=== PATIENT | male | born 1955 | race Caucasian/White ===

== ENCOUNTER 2018-02-19 05:56 | Inpatient (IN) | payer BC ==
--- NOTE | 2018-02-17 03:51 | HP ---
HISTORY AND PHYSICAL: DATE OF SURGERY: 02/19/18 SURGEON: Jelena Blanchard MD * (DICTATED BY EMELY SIEGEL) PROCEDURE: Right total hip arthroplasty. CHIEF COMPLAINT: Right hip pain. HISTORY OF PRESENT ILLNESS: Mr. Lambert is a 62-year-old gentleman with continued complaints of right hip pain. He has failed conservative treatment and elected to proceed with a right total hip arthroplasty, which is scheduled for 02/19/[address] Blanchard. PAST MEDICAL HISTORY: Hypertension, history of a DVT, and sleep apnea. PAST SURGICAL HISTORY: Appendectomy, left total hip arthroplasty. CURRENT MEDICATIONS: 1. Furosemide 40 mg one and half tab daily. 2. Aleve. 3. Lipo-flavonoid. 4. Benicar 40/25 mg daily. 5. Centrum Silver. ALLERGIES: None. FAMILY HISTORY: Lung cancer, heart disease, and kidney disease. SOCIAL HISTORY: He is a 62-year-old gentleman. He lives with his . He does not smoke or use drugs. Uses occasional alcohol. REVIEW OF SYSTEMS: A complete 14-point review of systems was reviewed with the patient. It was positive for history of a DVT approximately 5 to 6 years ago. He denies a history of hepatitis, HIV, MRSA, or anesthesia problems. PHYSICAL EXAMINATION GENERAL: He is well developed, well nourished, in no acute distress. VITAL SIGNS: He stands 71 inches tall, weighs 318 pounds. His blood pressure is 130/80, his heart rate is 82. HEENT: Normocephalic, atraumatic. NECK: Supple. No palpable lymph nodes. PULMONARY: The lungs are clear to auscultation bilaterally. CARDIO: Regular rate and rhythm. Strong S1, S2. ABDOMEN: Soft, nontender, nondistended. MUSCULOSKELETAL: Right lower extremity, the skin is intact. There are no open wounds or abrasions. He walks with an antalgic type gait favoring his right hip. He has decreased internal and external rotation of the right hip. He has a 2+ dorsalis pedis pulse, 1+ pitting edema. The lower extremity muscle group strengths are intact at 5/5 and he has intact sensation. The calves are soft and nontender. NEUROLOGICAL: He is alert, oriented x3. Cranial nerves II through XII are intact. ASSESSMENT AND PLAN: Mr. Lambert is a 62-year-old gentleman with end-stage osteoarthritis of the right hip. He has failed conservative treatment and elected to proceed with a right total hip arthroplasty, which is scheduled for 02/19/[address] Blanchard discussed the risks and benefits of the surgery at today's visit and all of his questions were answered. He will follow up with Dr. Blanchard 2 weeks after the surgery. EMELY SIEGEL [id number]/[facility] #: [id number] MTDD
[~2018-02-19 05:56] MED LIST: Buffered Lidocaine 0.9% SYRIN* 5 ML/SYR SYRINGE INTRADERM ONE
[2018-02-19] MEDS ORDERED: Famotidine IV* 10 MG/ML 2 ML (20 mg) IV ONE (06:00)
[2018-02-19] MEDS ORDERED: Dexamethasone IV* 4 MG/ML 1 ML (4 MG) IV SLOW PU ONE (06:00)
--- OUTSIDE RECORDS SUMMARY | 2018-02-19 06:00 | XMS REPORT ---
:1955 External Reference #:[id number] Author Organization [employer] Address [address] [place] [address] [place] [address] Phone [phone] Care Team Providers Name Role Phone Roxanna Mccann DO Primary Care Physician Unavailable Payers Type Date Identification Numbers Payment Provider Subscriber Commercial Policy Number: [id number] [facility] Martinez Lambert PayID: [id number] [address] [place] [address] Problems Date Description Provider Status Onset: 01/21/2018 Localized, primary osteoarthritis of the Jelenapablo Blanchard M.D. 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 ETOH Use Occasionally consumes alcohol Smoking Patient has never smoked Recreational Drug Use Denies Drug Use Exercise Type/Frequency Exercises sporadically Allergies, Adverse Reactions, Alerts Date Description Reaction Status Severity Comments 01/14/2018 NKDA active Medications Medication Date Status Form Strength Qnty SIG Indications Ordering Provider Raised 02/16/ Active Misc 1units use after M16.11 Jelena Toilet Seat 2018 right total [place], hip M.DDanny arthroplasty Rolling 02/16/ Active 1units use for M16.11 Jelena Walker 2018 ambulation s/p cipriano BlanchardDDanny Lasix / Active Tablets 40mg 1.5 po qday Unknown 0000 Centrum / Active Tablets 1 by mouth Unknown Silver 0000 every day Olmesartan / Active Tablets 40-25mg 1 by mouth Unknown Medoxomil/Hy 0000 every day drochlorothi azide Equate Plus / Active Liquid as needed Unknown 0000 Tylenol / Active Unknown 0000 Aleve / Hx Capsules 220mg 1-2 by mouth Unknown 0000 - twice a day as 2017 Benicar HCT / Hx Tablets 40-25mg 1 by mouth Unknown 0000 - every day 2017 Lipo-Flavono / Hx Tablets 1 po tid Unknown id Plus - 2017 Ocuflox / Hx Solution 0.3% 2 drops each Unknown 0000 - eye every two 01/06/ hours while 2018 awake x5 days. Aleve / Hx Unknown 0000 - 2017 Vital Signs Date Vital Result Comment 02/16/2018 Height 71 inches 5'11" Weight 318.75 lb BP Systolic Sitting 130 mmHg BP Diastolic Sitting 86 mmHg Respiratory Rate 20 /min Body Temperature 98.1 F Pain Level 7 BMI (Body Mass Index) 44.5 kg/m2 01/21/2018 Height 69.5 inches 5'9.50" Weight 319.00 lb Heart Rate 80 /min BP Systolic 126 mmHg BP Diastolic 82 mmHg BMI (Body Mass Index) 46.4 kg/m2 01/16/2018 Height 73 inches 6'1" Heart Rate 83 /min BP Systolic Sitting 136 mmHg BP Diastolic Sitting 70 mmHg Respiratory Rate 17 /min Pain Level 5 can get very severe O2 % BldC Oximetry 96 % ra Results Test Date Test Result H/L Range Note Inr/Protime 02/16/2018 Inr 0.98 0.77-1.02 Laboratory test finding 02/16/2018 Partial Thrombo 30.1 seconds 26.0- 36.3 Time PTT Comp Metabolic Panel 02/16/2018 Sodium 139 mmol/L 135-145 Potassium 4.1 mmol/L 3.5-5.0 Chloride 100 mmol/L Low 101-111 Co2 Carbon Dioxide 31 mmol/L 22-32 Anion Gap 8 mmol/L 2-11 Glucose 96 mg/dL 70-100 Blood Urea Nitrogen 32 mg/dL High 6-24 Creatinine 1.36 mg/dL High 0.67-1.17 BUN/Creatinine Ratio 23.5 High 8-20 Calcium 10.1 mg/dL 8.6-10.3 Total Protein 7.3 g/dL 6.4-8.9 Albumin 4.4 g/dL 3.2-5.2 Globulin 2.9 g/dL 2-4 Albumin/Globulin Ratio 1.5 1-3 Total Bilirubin 0.40 mg/dL 0.2-1.0 Alkaline Phosphatase 57 U/L 34-104 Alt 27 U/L 7-52 Ast 26 U/L 13-39 Egfr Non- 52.8 >60 Egfr 63.8 >60 1 CBC Auto Diff 02/16/2018 White Blood Count 7.7 10^3/uL 3.5-10.8 Red Blood Count 4.21 10^6/uL 4.00-5.40 Hemoglobin 13.8 g/dL Low 14.0-18.0 Hematocrit 39 % Low 42-52 Mean Corpuscular Volume 93 fL 80-94 Mean Corpuscular Hemoglobin 33 pg High 27-31 Mean Corpuscular HGB Conc 35 g/dL 31-36 Red Cell Distribution Width 14 % 10.5-15 Platelet Count 231 10^3/uL 150-450 Mean Platelet Volume 7.9 um3 7.4-10.4 Abs Neutrophils 5.2 10^3/uL 1.5-7.7 Abs Lymphocytes 1.5 10^3/uL 1.0-4.8 Abs Monocytes 0.8 10^3/uL 0-0.8 Abs Eosinophils 0.2 10^3/uL 0-0.6 Abs Basophils 0.1 10^3/uL 0-0.2 Abs Nucleated RBC 0 10^3/uL Granulocyte % 67.0 % 38-83 Lymphocyte % 19.2 % Low 25-47 Monocyte % 9.9 % High 0-7 Eosinophil % 2.9 % 0-6 Basophil % 1.0 % 0-2 Nucleated Red Blood Cells % 0.1 Urinalysis Profile 02/16/2018 Urine Color Straw Urine Appearance Clear Urine Specific [place] 1.009 Low 1.010-1.030 Urine pH 6.0 5-9 Urine Urobilinogen Negative Negative Urine Ketones Negative Negative Urine Protein Negative Negative Urine Leukocytes Negative Negative Urine Blood Negative Negative Urine Nitrite Negative Negative Urine Bilirubin Negative Negative Urine Glucose Negative Negative Type & Screen 02/16/2018 Patient Blood Type O Positive Antibody Screen NEGATIVE 1 Because ethnic data is not always readily available, this report includes an eGFR for both -Americans and non- Americans. The National Kidney Disease Education Program (NKDEP) does not endorse the use of the MDRD equation for patients that are not between the ages of 18 and 70, are , have extremes of body size, muscle mass, or nutritional status, or are non- or non-. According to the National Kidney Foundation, irrespective of diagnosis, the stage of the disease is based on the level of kidney function: Stage Description GFR(mL/min/1.73 m(2)) 1 Kidney damage with normal or decreased GFR 90 2 Kidney damage with mild decrease in GFR 60-89 3 Moderate decrease in GFR 30-59 4 Severe decrease in GFR 15-29 5 Kidney failure <15 (or dialysis) Procedures Date CPT Code Description Status 01/16/2018 22148 Radiologic Exam Hips Bilateral With Pelvis Minimum 5 Completed Views Encounters Type Date Location Provider CPT E/M Dx Office Visit 01/21/2018 [facility] M.D. 31792 M16.11 10:45a C.M.ADanny M25.551 Office Visit 01/16/2018 11:00a [facility] [place] [address] M16.11 [facility] [place] Z96.642 Plan of Care Future Appointment(s):03/04/2018 9:30 am - Jelena Blanchard M.D. at [facility]02/19/2018 9:30 am - Marco Oneill PA-C at [facility]02/19/2018 9:30 am - EMELY Pennington at [facility]02/19/2018 9:30 am - Jelena Blanchard M.D. at [facility]02/16/2018 - Jelena Blanchard M.D.M16.11 Unilateral primary osteoarthritis, right hipNew Medication:Raised Toilet SeatRolling WalkerFollow up:Follow up: 2 weeks after jgamproP72.551 Pain in right hip
--- OUTSIDE RECORDS SUMMARY | 2018-02-19 06:00 | XMS REPORT ---
:1955 External Reference #:[id number] Author Organization [employer] Address [address] [place] [address] [place] [address] Phone [phone] Care Team Providers Name Role Phone Roxanna Mccann DO Primary Care Physician Unavailable Payers Type Date Identification Numbers Payment Provider Subscriber Commercial Policy Number: [id number] [facility] Martinez Lambert PayID: [id number] [address] [place] [address] Problems Date Description Provider Status Onset: 01/21/2018 Localized, primary osteoarthritis of the Jelenapablo Blanchard M.D. 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 ETOH Use Occasionally consumes alcohol Smoking Patient [...] 40mg 1.5 po qday Unknown 0000 Centrum 00/00/ Active Tablets 1 by mouth Unknown Silver 0000 every day Olmesartan / Active Tablets 40-25mg 1 by mouth Unknown Medoxomil/Hy 0000 every day drochlorothi azide Equate Plus / Active Liquid as needed Unknown 0000 Tylenol 00/ Active Unknown 0000 Aleve / Hx Capsules 220mg 1-2 by mouth Unknown 0000 - twice a day as 2017 Benicar HCT / Hx Tablets 40-25mg 1 by mouth Unknown 0000 - every day 2017 Lipo-Flavono / Hx Tablets 1 po tid Unknown id Plus 0000 - 2017 Ocuflox / Hx Solution 0.3% 2 drops each Unknown 0000 - eye every two 07/ hours while 2018 awake x5 days. Aleve [...] % BldC Oximetry 96 % ra Results Description No Information Procedures Date CPT Code Description Status 01/16/2018 02385 Radiologic Exam Hips Bilateral With Pelvis Minimum 5 Completed Views Encounters Type Date Location Provider CPT E/M Dx Office Visit 01/21/2018 [facility] M.D. 11120 M16.11 10:45a [place] M25.551 Office Visit 01/16/2018 11:00a [facility] [place] [address] [facility] [place] Z96.642 Plan of Care Future Appointment(s):03/04/2018 9:30 am - Jelena Blanchard M.D. at [facility] [place]/19/2018 9:30 am - Marco Oneill PA-C at [facility]02/19/2018 9:30 am - EMELY Pennington at [facility]02/19/2018 9:30 am - Jelena Blanchard M.D. at [facility]02/16/2018 - Jelena Blanchard M.D.M16.11 Unilateral primary osteoarthritis, right hipNew Medication:Raised Toilet SeatRolling WalkerFollow up:Follow up: 2 weeks after iluqabgC80.551 Pain in right hip
[2018-02-19] MEDS ORDERED: Dexamethasone IV* 4 MG/ML 1 ML (4 MG) ONE (06:23)
[2018-02-19] MEDS ORDERED: ceFAZolin 2 GM PREMIX (*) 2 GM/50 ML BAG IVPB ONE (06:24)
[2018-02-19] MEDS ORDERED: Famotidine IV* 10 MG/ML 2 ML (20 mg) ONE (06:24)
[2018-02-19] MEDS ORDERED: Gabapentin CAP(*) 300 MG PO ONE (06:59)
[2018-02-19] MEDS ORDERED: celeCOXIB CAP* 200 MG PO ONE (06:59)
[2018-02-19] MEDS ORDERED: ceFAZolin 1 GM ADVAN(*) 1 GM in NS 0.9% 50 ML* 50 ML IVPB ONE (07:00)
[2018-02-19] MEDS ORDERED: ROPIVACAINE 5 MG/ML 30 ML BTL (0.5%) ONE ×2 (07:10→07:11)
[2018-02-19] MEDS ORDERED: Ropivacaine (OR use only) 2 MG/ML 10 ML ONE ×2 (07:10→07:11)
[2018-02-19] MEDS ORDERED: Atracurium* 10 MG/ML 10 ML VIAL ONE (07:13)
[2018-02-19] MEDS ORDERED: fentaNYL* 50 MCG/ML 5 ML VIAL (250 MCG VIAL) ONE ×2 (07:13→08:03)
[2018-02-19] MEDS ORDERED: Propofol* 10 MG/ML 20 ML BTL IV PUSH ONE (07:13)
[2018-02-19] MEDS ORDERED: Ondansetron INJ* 2 MG/ML VIAL ONE ×3 (07:13→13:54)
[2018-02-19] MEDS ORDERED: Lidocaine 2% PF * 5 ML VIAL ONE (07:13)
[2018-02-19] MEDS ORDERED: Midazolam* 1 MG/ML 5 ML VIAL (5 MG) ONE ×3 (07:13→11:37)
[2018-02-19] MEDS ORDERED: Gabapentin CAP(*) 300 MG ONE (07:18)
[2018-02-19] MEDS ORDERED: celeCOXIB CAP* 100 MG ONE (07:18)
[2018-02-19] MEDS ORDERED: Phenylephrine INJ* 10 MG/ML 1 ML VIAL (10 MG) ONE (08:48)
[2018-02-19] MEDS ORDERED: EPHEDrine (Pressors)* 50 MG/ML VIAL ONE (08:56)
[2018-02-19] MEDS ORDERED: HYDROmorphone INJ* 0.5 MG/0.5 ML SYRINGE IV PRN (09:04)
[2018-02-19] MEDS ORDERED: Ondansetron INJ* 2 MG/ML VIAL IV PRN ×2 (09:04→11:01)
[2018-02-19] MEDS ORDERED: Naloxone* 0.4 MG/ML 1 ML VIAL IV PRN (09:04)
[2018-02-19] MEDS ORDERED: DiMENhydriNATE IV* 50 MG/ML VIAL IV PUSH PRN (09:04)
--- NOTE | 2018-02-19 09:52 | RAD ---
HISTORY: RIGHT TOTAL HIP REPLACEMENT COMPARISONS: None VIEWS: 1 , single frontal portable intraoperative view of the right hip arthroplasty FINDINGS: Single portable intraoperative view of the right hip during arthroplasty demonstrates a right hip arthroplasty with a temporary femoral sizing component IMPRESSION: LIMITED PORTABLE INTRAOPERATIVE VIEW OF THE RIGHT HIP DURING ARTHROPLASTY
[2018-02-19] MEDS ORDERED: Ropivacaine* 2 MG/ML 20 ML VIAL (0.2%) ONE (10:10)
[2018-02-19] MEDS ORDERED: Magnesium Hydroxide LIQ* 30 ML UDC PO PRN (11:01)
[2018-02-19] MEDS ORDERED: oxyCODONE/Acetamin 5/325 MG* TAB PO PRN (11:01)
[2018-02-19] MEDS ORDERED: Bisacodyl SUPP* 10 MG SUPP PR PRN (11:01)
[2018-02-19] MEDS ORDERED: diPHENhydraMINE IV* 50 MG/ML 1 ml VIAL (BENADRYL) IV PRN (11:01)
[2018-02-19] MEDS ORDERED: Morphine INJ* 2 MG/ML 1 ML SYRINGE (TWO MG - NEW SYRINGE VERSION) IV PRN (11:01)
[2018-02-19] MEDS ORDERED: fentaNYL* 50 MCG/ML 2 ML VIAL (100 MCG VIAL) ONE ×2 (11:02→11:09)
[2018-02-19] MEDS ORDERED: HYDROmorphone INJ* 0.5 MG/0.5 ML SYRINGE ONE (11:02)
[2018-02-19] MEDS: fentaNYL* 50 MCG/ML 2 ML VIAL (100 MCG VIAL) IV PRN ×2 (11:04→11:42)
[2018-02-19] MEDS ORDERED: oxyCODONE/Acetamin 5/325 MG* TAB ONE (11:07)
[2018-02-19] MEDS: oxyCODONE/Acetamin 5/325 MG* TAB PO PRN ×3 (11:40→16:34)
[2018-02-19] MEDS ORDERED: Acetaminophen TAB* 325 MG PO SCH (12:00)
--- NOTE | 2018-02-19 12:13 | RAD ---
INDICATION: Right hip arthroplasty COMPARISON: February 19, 2018 TECHNIQUE: An AP view of the pelvis and AP views of the hip in neutral and abducted position were obtained FINDINGS: Bones: There are no acute focal bony findings. Joint spaces: There is right hip arthroplasty. The prosthesis appears normally seated. SI joints/symphysis: The SI joints and symphysis are intact. Other: None IMPRESSION: RIGHT HIP ARTHROPLASTY.
[2018-02-19] MEDS ORDERED: oxyCODONE TAB* 5 MG TAB ONE (13:57)
[2018-02-19] MEDS: oxyCODONE TAB* 5 MG TAB PO PRN (14:00)
[2018-02-19] MEDS ORDERED: celeCOXIB CAP* 100 MG PO ONE (15:00)
[2018-02-19] MEDS: Cyclobenzaprine TAB* 10 MG PO PRN (15:29)
[2018-02-19] MEDS: Acetaminophen TAB* 325 MG PO SCH ×2 (15:30→22:57)
--- NOTE | 2018-02-19 16:29 | PN ---
Progress Note - Progress Note Date of Service: 02/19/18 Note: resting comfortably, pain well controlled; 2+ DP pulse, intact sensation, able to dorsi flex/plantar flex; dressing c/d/i
[2018-02-19] MEDS: ceFAZolin 1 GM ADVAN(*) 1 GM in NS 0.9% 50 ML* 50 ML IVPB SCH (16:34)
[2018-02-19] MEDS ORDERED: Warfarin TAB(*) 6 MG PO ONE (17:00)
--- NOTE | 2018-02-19 19:07 | CONS ---
CC: Dr. Blanchard; Roxanna Rosado DO * CONSULTATION REPORT: DATE OF CONSULT: 02/19/18 PATIENT OF: Dr. Jelena Blanchard. REFERRED TO: Marli Yen DO PRIMARY CARE PHYSICIAN: Roxanna Rosado DO REASON FOR CONSULT: Medical co-management. HISTORY OF PRESENT ILLNESS: Mr. Lambert is a 62-year-old gentleman with past medical history significant for hypertension, osteoarthritis, obstructive sleep apnea and morbid obesity who has been suffering from consistent right hip pain for the past few years. The patient had prior left hip replacement done back in 2011 and for the past few months, he had noticed increasing pain to his right hip. He was evaluated by the [facility] and found to be a good candidate for right hip replacement to be performed on an elective basis. The patient had history of hypertension that has been well controlled using his medications at home. He has a significant family history of coronary artery disease; however, he denies any history of hyperlipidemia or history of IA himself. He also has history of obstructive sleep apnea, which he has not been using any CPAP at home. According to his , she wakes him up numerous times during the night when she notices that he stopped breathing and has been snoring loudly. He was taken to the operating room earlier today and had a successful right total hip replacement and he was lying comfortably in recovery room. We were asked to see the patient in consultation regarding his medical comorbidities and to provide medical co-management while his stay in the hospital. PAST MEDICAL HISTORY: As mentioned above significant for: 1. Hypertension. 2. Osteoarthritis. 3. Obstructive sleep apnea. 4. Morbid obesity. PAST SURGICAL HISTORY: 1. Significant for appendectomy. 2. Prior total hip replacement on the left side back in 2011. 3. Postop day #0, status post right total hip replacement. CURRENT MEDICATIONS: His medications at home include: 1. Acetaminophen 650 mg p.o. q.4 hours as needed for pain or fever. 2. Lasix 40 mg p.o. daily. 3. Benicar 40/25 mg 1 tablet p.o. q.a.m. 4. Multiple vitamins 1 tablet daily. 5. Aleve 220 mg 2 tablets by mouth q.6 hours as needed for arthritic aches and pains. ALLERGIES: He has no known drug allergies. FAMILY HISTORY: Reviewed and significant for coronary artery disease and his mother, who in her 70s as well as history of lung cancer in his father in his early 40s. SOCIAL HISTORY: The patient is retired. He is nonsmoker who drinks alcohol rarely. His , Adelaida, is the healthcare proxy carrier and he wishes to be a full code. REVIEW OF SYSTEMS: See HPI, otherwise 14 points review of systems were examined and they were essentially negative. PHYSICAL EXAM: General: He is a pleasant, obese, upper middle age gentleman, lying comfortably on his bed and in no acute distress or discomfort at the time of consultation. Vitals revealed a blood pressure of 159/83, pulse of 87, temperature of 96.8, respirations of 14 with O2 sat of 98% on 5 L oxygen via mask. HEENT: Head is normocephalic, atraumatic. Sclerae anicteric. PERRLA. EOMs intact. Oropharynx is pink and moist. Neck: Supple. Trachea midline. No cervical adenopathy, thyromegaly, or JVD. Lungs: Clear to auscultation bilaterally. Heart: Regular rate and rhythm. Normal S1 and S2 without rubs, murmurs, or gallops. Back with normal curvature. No CVA tenderness. Abdomen: Soft, obese, and round. There is no distention or tenderness noted. No guarding, rigidity, or rebound tenderness. No hernias, masses, or hepatosplenomegaly. Extremities: Without cyanosis, clubbing, or edema. Neurologic: He is awake, alert, and oriented x4. Tongue is midline. Muscle dry room operator is equal bilaterally and sensation is intact throughout. Rectal exam deferred at this time. IMPRESSION: A 62-year-old gentleman with past medical history of hypertension, morbid obesity, osteoarthritis, and obstructive sleep apnea, who is postop day # 0 status post right total hip replacement. ASSESSMENT AND PLAN: 1. Hypertension. The patient appears to be slightly hypertensive in the immediate postoperative period, likely due to added stress from surgery and occasional pain and discomfort. I will maintain him on his Benicar to be taken once daily in the morning; however, we will hold his Lasix for the time being since he has been getting IV fluid in a postoperative period. We will keep close monitoring of his blood pressure and potentially may add other agents to keep it within normal limits. 2. Status post right total hip replacement, management per orthopedic team. I anticipate he is going to start his physical therapy in the morning. He is currently having a Hernandez catheter that will be likely discontinued in the morning as well. Pain control appears to be adequate at this time and management will be per ortho team. Anticoagulation protocol will be also managed by Orthopedics. 3. Obstructive sleep apnea. The patient had an episode of desaturation of his oxygen level at PACU. He refuses to use CPAP at home. I had long conversation with him regarding the necessity to keep monitor his oxygen saturation in the next 24 hours and he will use his CPAP while in the hospital and hopefully to continue using at home. 4. Osteoarthritis. We will continue his pain medication per orthopedic team. 5. Morbid obesity. Supportive care and physical therapy. 6. DVT prophylaxis. The patient is being covered with Lovenox to be bridge to Coumadin and management is done by orthopedic team. 7. Code status. He is a full code. TIME SPENT: I spent approximately 50 minutes consult into this patient, for which greater than 50% of the time spent on taking history and performing physical exam. I went on and discussed the case with my attending, Dr. Marli Yen, who agreed to plan of care. Thank you for this consultation. EMELY ROQUE [id number]/[facility] #: [id number] MTDD
[2018-02-19] MEDS: Docusate CAP* 100 MG PO SCH (22:57)
[2018-02-19] MEDS: Magnesium Hydroxide LIQ* 30 ML UDC PO SCH (22:58)
[2018-02-20] MEDS: ceFAZolin 1 GM ADVAN(*) 1 GM in NS 0.9% 50 ML* 50 ML IVPB SCH ×2 (00:12→07:38)
[2018-02-20] MEDS: Cyclobenzaprine TAB* 10 MG PO PRN (01:40)
[2018-02-20] MEDS: oxyCODONE TAB* 5 MG TAB PO PRN ×4 (01:41→22:07)
--- NOTE | 2018-02-20 03:56 | OP ---
DATE OF OPERATION: 02/19/18 - ROOM #341 DATE OF : 51 SURGEON: Jelena Blanchard MD CAR CUSTOMIZER: EMELY Feldman. Mr. Oneill did help throughout the procedure with preparation of the leg, wound retraction, manipulation of the hip and wound closure. ANESTHESIOLOGIST: Dr. Ch. ANESTHESIA: General. PRE-OP DIAGNOSES: 1. Severe end-stage degenerative osteoarthritis of the right hip joint. 2. Morbid obesity. POST-OP DIAGNOSES: 1. Severe end-stage degenerative osteoarthritis of the right hip joint. 2. Morbid obesity. OPERATIVE PROCEDURE: Right total hip arthroplasty plus modifier for increased complexity of case secondary to morbid obesity add in at least 1 hour to the operative time. BRIEF HISTORY/INDICATIONS: Mr. Lambert is a 62-year-old gentleman with years of increasingly severe right hip pain. He failed conservative treatment with anti- inflammatories, pain medication, intraarticular injections, and physical therapy. Due to continued pain and decreased quality of life, the patient elected to undergo a right total hip arthroplasty. Radiograph showed bone-on- bone arthritis. Informed consent was obtained from the patient. He understood the risks of surgery included, but were not limited to bleeding, infection, damage to nearby structures, continued pain, need for further surgery, intraoperative fracture, nerve palsy, hardware failure or loosening, dislocation , leg length discrepancy, stroke, heart attack, blood clot, and . He wished to proceed. INTRAOPERATIVE FINDINGS: Intraoperatively, the patient was noted to have morbid obesity, which made each step of the case more difficult. His morbid obesity added at least 1 hour to the operative case. He had at least 8 cm of subcutaneous fat. He was noted to have extensive osteoarthritis with full thickness loss of cartilage along the acetabulum more than femoral head and neck. COMPLICATIONS: None. SPECIMEN: Femoral head and acetabular reaming sent to Pathology. ESTIMATED BLOOD LOSS: 400 cc. HARDWARE USED: This is uncemented [place] total hip arthroplasty hardware. For the cup, a Tritanium cluster hole shell 56D single 20 mm screw. For the liner, a Trident X3 10-degree polyethylene insert, 36 E. For the stem, an Accolade TMZF size 3.5 with a 127-degree neck and for the head, a Biolox delta ceramic V40 femoral head 36 -2.5. DESCRIPTION OF PROCEDURE: Mr. [place] was identified in the preanesthesia unit. His right lower extremity was marked as the correct operative side. Informed consent was signed and placed in the chart. The patient was taken to the operating room and placed under general anesthesia. A Hernandez catheter was placed. The patient was placed in the left lateral decubitus position on the pegboard. All bony prominences were well padded. Right lower extremity was prepped and draped in the usual sterile fashion. Preop time-out was made to correctly identify the patient's side and site. Appropriate perioperative antibiotics were given within 1 hour of incision. A standard posterior hip incision was made with the 10 blade and carried down to the lateral fascial layer. New 10 blade was used to make a lateral fascial layer incision in line with the skin incision. A [place] retractor was placed. The posterior hip joint was visualized. The piriformis and conjoint tendons were elevated off the posterolateral femur using electrocautery and tagged with #5 Ethibond. Electrocautery was then used to make a standard posterolateral capsular flap and tagged with #5 Ethibond. The hip was carefully dislocated. Lesser troch to center of the femoral head measured 62 mm. The oscillating saw was used to make the appropriate femoral neck cut. The femoral head was removed. The femur was retracted anteriorly. After appropriate placement of retractors, the acetabulum was visualized. A long-handled knife was used to sharply remove any remaining labrum from the acetabular rim. The acetabulum was sequentially reamed up to a size 55. A 55 reamer obtained bleeding subchondral bone bed. A 55 trial had good fit. Final implant chosen was a Tritanium cluster hole shell 56 D. This was impacted into the acetabulum without difficulty. The cup was stable with appropriate anteversion and abduction angle. A 20 mm screw was placed in the supero- posterior quadrant for added stability. A Trident X3 10 degree polyethylene insert 36 E was chosen. This was impacted into the acetabulum. Stability of the liner was checked and rechecked and noted to be stable. Next, attention was turned to preparation of the proximal femur. The patient's body habitus made retraction quite difficult. A canal finder was used to enter the proximal femur. The proximal femur was sequentially broached up to a size 3.5. A 3.5 broach had excellent fit and appropriate anteversion. A 127 neck trial was chosen as well as a 36+0 head trial. Lesser troch to center of the femoral head measured 66 mm; therefore, a -3.5 head was chosen. This measured 63 mm. The hip was reduced and taken through a range of motion. The hip was stable in all positions. There was good soft tissue tension and appropriate leg length. The hip was carefully dislocated. All trials were removed. Final implant chosen was an Accolade TMZF size 3.5 with a 127-degree neck. Head chosen was a 36 -2.5 Biolox delta ceramic V40 femoral head. This was impacted onto the femoral neck. The hip was reduced and taken through a range of motion. The hip was stable in all positions. The incision was copiously irrigated with sterile saline. Previously tagged capsule and tendons were reapproximated to the posterolateral femur through 2 trochanteric drill holes. The lateral fascial layer was closed using interrupted #1 Vicryls. The rest of the incision was closed in a layered fashion using 0 and 2- 0 Vicryls. Skin was closed using running 3-0 Monocryl with Dermabond. Sterile Adaptic, 4x4s, and paper tape were used to cover the incision. The patient's anesthesia was reversed without difficulty. He was taken to the PACU in stable condition. Intended weightbearing will be weightbearing as tolerated. Intended DVT prophylaxis will be Coumadin with a Lovenox bridge. [id number] #: [id number] CHARLIE
[2018-02-20] MEDS: Acetaminophen TAB* 325 MG PO SCH ×3 (05:49→22:07)
[2018-02-20 07:06] LABS: INR 1.12 (0.77-1.02)
[2018-02-20 07:22] LABS: EGFR Non-African American 50.2 (>60)
[2018-02-20 07:27] LABS: Hematocrit 33 % (42-52); Hemoglobin 11.5 g/dl (14.0-18.0)
[2018-02-20] MEDS: Vitamin THERAPEUTIC TAB PO SCH (07:38)
[2018-02-20] MEDS: Docusate CAP* 100 MG PO SCH ×2 (07:38→20:58)
[2018-02-20] MEDS: Magnesium Hydroxide LIQ* 30 ML UDC PO SCH ×2 (07:39→20:58)
[2018-02-20] MEDS: Valsartan TAB* 160 MG PO SCH (07:55)
[2018-02-20] MEDS: Hydrochlorothiazide TAB* 25 MG PO SCH (07:55)
[2018-02-20] MEDS: oxyCODONE/Acetamin 5/325 MG* TAB PO PRN ×2 (07:58→11:51)
[2018-02-20 08:17] LABS: Mean Platelet Volume 8.9 um3 (7.4-10.4); Platelet Count 155 10^3/ul (150-450)
[2018-02-20] MEDS ORDERED: Furosemide TAB* 40 MG PO SCH (09:00)
[2018-02-20] MEDS ORDERED: OLMESARTAN HCTZ PO SCH (09:00)
--- NOTE | 2018-02-20 09:09 | PN ---
Subjective Date of Service: 02/20/18 Interval History: Mr. Lambert reports feeling well this afternoon and denies chest pain, SOB, nausea, or abdominal pain. He reports that his knee pain is well controlled on the current pain medication regimen. Objective Active Medications: Acetaminophen (Tylenol Tab*) 650 mg PO Q8HR GELACIO Bisacodyl (Dulcolax Supp*) 10 mg [place] DAILY PRN Cyclobenzaprine HCl (Flexeril Tab*) 10 mg PO TID PRN Diphenhydramine HCl (Benadryl Iv*) 25 mg IV Q6H PRN Docusate Sodium (Colace Cap*) 100 mg PO BID GELACIO Enoxaparin Sodium (Lovenox(*)) 40 mg SUBCUT Q24H [place]AC[facility] Hydrochlorothiazide (Hydrodiuril Tab*) 25 mg PO DAILY [facility]AC[facility] Lactated Ringer's (Lactated Ringers 1000 Ml Bag*) 1,000 mls @ 125 mls/hr IV PER RATE GELACIO Lactated Ringer's (Lactated Ringers 1000 Ml Bag*) 1,000 mls @ 100 mls/hr IV PER RATE GELACIO Magnesium Hydroxide (Milk Of Magnesia Liq*) 30 ml PO BID GELACIO Magnesium Hydroxide (Milk Of Magnesia Liq*) 30 ml PO Q6H PRN Morphine Sulfate (Morphine Inj ((Syringe))*) 4 mg IV Q2H PRN Multivitamins (Theragran Tab*) 1 tab PO DAILY [facility] Ondansetron HCl (Zofran Inj*) 4 mg IV Q6H PRN Oxycodone HCl (Roxycodone Tab*) 10 mg PO Q4H PRN Oxycodone/Acetaminophen (Percocet 5/325 Tab*) 1 tab PO Q4H PRN Oxycodone/Acetaminophen (Percocet 5/325 Tab*) 2 tab PO Q4H PRN Pharmacy Profile Note (Coumadin Daily Reminder*) 0 note FOLLOW UP 1700 [facility]IO Valsartan (Diovan Tab*) 320 mg PO DAILY [facility] Vital Signs: Temp Pulse Resp BP Pulse Ox 99.4 F 93 16 130/68 95 02/20/18 03:55 02/20/18 03:55 02/20/18 07:58 02/20/18 03:55 02/20/18 03:55 Oxygen Devices in Use Now: None Appearance: Male sitting up in chair in NAD Eyes: No Scleral Icterus Ears/Nose/Mouth/Throat: Mucous Membranes Moist Neck: Trachea Midline Respiratory: Symmetrical Chest Expansion and Respiratory Effort, Clear to Auscultation Cardiovascular: NL Sounds; No Murmurs; No JVD, No Edema Abdominal: NL Sounds; No Tenderness; No Distention Extremities: No Edema Skin: No Rash or Ulcers Neurological: Alert and Oriented x 3, NL Muscle Strength and Tone Nutrition: Taking PO's Result Diagrams: 02/20/18 06:13 02/20/18 08:05 Assess/Plan/Problems-Billing Assessment: Mr. Lambert is a 62 yo M with a PMH of HTN and CYNTHIA who cannot tolerate home CPAP who was admitted on 02/19/18 for an elective right hip total arthroplasty. - Patient Problems (1) S/P total hip arthroplasty Comment: - POD # 1, management per ortho. - Pain meds prn with bowel regimen. - PT/OT. - Hgb 11.5. (2) Hypertension Comment: - SBP 150s. - Continue lasix, ARB and htcz. (3) CYNTHIA (obstructive sleep apnea) Comment: - Not on home cpap. (4) DVT prophylaxis Comment: - Lovenox with warfarin. (5) Full code status Comment:
--- NOTE | 2018-02-20 11:21 | PN ---
Progress Note - Progress Note Date of Service: 02/20/18 SOAP: Subjective: [Pt was seen today sitting up in chair. He states that he has mild pain and that it is manageable. He states he feels as he may be ready to go home today but is leaning more towards going home tomorrow morning as he would like his to not drive in the evening. He denies any SOB, Chest pain, nausea or vomiting. ] Objective: [General: A&Ox3, NAD. MSK, RLE: Dressing is c/d/i. +df/pf. Calves are soft and non tender to palpation. Sensation is intact to light touch and the pt has a 2+ DP and PT pulse.] Vital Signs Temp 97.2 F 02/20/18 09:23 Pulse 98 02/20/18 09:23 Resp 15 02/20/18 09:53 BP 150/65 02/20/18 09:23 Pulse Ox 97 02/20/18 09:23 Intake & Output 02/19/18 02/20/18 02/20/18 18:59 06:59 18:59 Intake Total 2750 360 650 Output Total 1200 720 0 Balance 1550 -360 650 Intake: IV Fluids 2600 CEFAZOLIN 3G 100 lr 2500 Oral 150 360 650 Output: Urine 0 Hernandez 600 720 Emesis 300 Estimated Blood Loss 300 Other: # Bowel Movements 0 Assessment: [POD 1: RTHA] Plan: [PT/OT continue current pain medication 8mg of Coumadin tonight Possible DC tonight, more likely tomorrow morning.]
[2018-02-20] MEDS ORDERED: Furosemide TAB* 40 MG ONE (11:47)
[2018-02-20] MEDS: Furosemide TAB* 20 MG PO SCH (11:48)
[2018-02-20] MEDS ORDERED: Enoxaparin(*) 40 MG/0.4 ML SYR SUBCUT SCH (12:00)
[2018-02-20] MEDS ORDERED: Warfarin TAB(*) 4 MG PO SCH (17:00)
[2018-02-21] MEDS: oxyCODONE/Acetamin 5/325 MG* TAB PO PRN ×2 (03:41→09:50)
[2018-02-21 06:01] LABS: Hematocrit 28 % (42-52); Hemoglobin 9.7 g/dl (14.0-18.0); Mean Platelet Volume 7.6 um3 (7.4-10.4); Platelet Count 153 10^3/ul (150-450)
[2018-02-21] MEDS: Acetaminophen TAB* 325 MG PO SCH (06:02)
[2018-02-21 06:08] LABS: INR 1.37 (0.77-1.02)
--- NOTE | 2018-02-21 09:07 | PN ---
Progress Note - Progress Note Date of Service: 02/21/18 SOAP: Subjective: [Pt doing well. R hip pain controlled with po meds. Feels ready to go home.] Objective: [A and O x 3, NAD. At PT upon my visit. R hip dressing C/D/I Calves soft, NT. Pt ambulating with walker Vital Signs: Temp Pulse Resp BP Pulse Ox 97.4 F 85 18 123/55 99 02/21/18 07:16 02/21/18 07:16 02/21/18 08:00 02/21/18 07:16 02/21/18 08:00 Laboratory Results - last 24 hr 02/21/18 02/21/18 05:50 05:50 Hgb 9.7 L Hct 28 L Plt Count 153 MPV 7.6 INR (Anticoag Therapy) 1.37 H ] Assessment: [s/p R RAYO POD #2] Plan: [Percocet for pain Coumadin for DVT prophylaxis - 8 mg , 8 mg Friday D/C patient home with services F/U with Dr. Blanchard in 2 weeks]
[2018-02-21] MEDS: Hydrochlorothiazide TAB* 25 MG PO SCH (09:17)
[2018-02-21] MEDS: Magnesium Hydroxide LIQ* 30 ML UDC PO SCH (09:17)
[2018-02-21] MEDS: Furosemide TAB* 20 MG PO SCH (09:17)
[2018-02-21] MEDS: Docusate CAP* 100 MG PO SCH (09:17)
[2018-02-21] MEDS: Valsartan TAB* 160 MG PO SCH (09:17)
[2018-02-21] MEDS: Vitamin THERAPEUTIC TAB PO SCH (09:18)
--- NOTE | 2018-02-21 11:14 | PN ---
Subjective Date of Service: 02/21/18 Interval History: Mr. Lambert denies complaint today. He has been up working with PT already and is hopeful to go home later this afternoon. Objective Active Medications: Acetaminophen (Tylenol Tab*) 650 mg PO Q8HR GELACIO Bisacodyl (Dulcolax Supp*) 10 mg [place] DAILY PRN Cyclobenzaprine HCl (Flexeril Tab*) 10 mg PO TID PRN Diphenhydramine HCl (Benadryl Iv*) 25 mg IV Q6H PRN Docusate Sodium (Colace Cap*) 100 mg PO BID GELACIO Enoxaparin Sodium (Lovenox(*)) 40 mg SUBCUT Q24H GELACIO Furosemide (Lasix Tab*) 60 mg PO DAILY [facility] Hydrochlorothiazide (Hydrodiuril Tab*) 25 mg PO DAILY G[facility]ACIO Magnesium Hydroxide (Milk Of Magnesia Liq*) 30 ml PO BID GELACIO Magnesium Hydroxide (Milk Of Magnesia Liq*) 30 ml PO Q6H PRN Morphine Sulfate (Morphine Inj ((Syringe))*) 4 mg IV Q2H PRN Multivitamins (Theragran Tab*) 1 tab PO DAILY [facility] Ondansetron HCl (Zofran Inj*) 4 mg IV Q6H PRN Oxycodone HCl (Roxycodone Tab*) 10 mg PO Q4H PRN Oxycodone/Acetaminophen (Percocet 5/325 Tab*) 1 tab PO Q4H PRN Oxycodone/Acetaminophen (Percocet 5/325 Tab*) 2 tab PO Q4H PRN Pharmacy Profile Note (Coumadin Daily Reminder*) 0 note FOLLOW UP 1700 [facility] Valsartan (Diovan Tab*) 320 mg PO DAILY [facility] Warfarin Sodium (Coumadin Tab(*)) 8 mg PO DAILY@1700 [facility]; Protocol Vital Signs: Temp Pulse Resp BP Pulse Ox 97.4 F 85 18 123/55 99 02/21/18 07:16 02/21/18 07:16 02/21/18 09:50 02/21/18 07:16 02/21/18 08:00 Oxygen Devices in Use Now: CPAP Result Diagrams: 02/21/18 05:50 02/20/18 08:05 Assess/Plan/Problems-Billing Assessment: Mr. Lambert is a 62 yo M with a PMH of HTN and CYNTHIA who cannot tolerate home CPAP who was admitted on 02/19/18 for an elective right hip total arthroplasty. - Patient Problems (1) S/P total hip arthroplasty Comment: - POD # 2, management per ortho. - Pain meds prn with bowel regimen. - PT/OT. - Hgb 9.7. (2) Hypertension Comment: - SBP 120-150s. - Continue lasix, ARB and htcz. (3) CYNTHIA (obstructive sleep apnea) Comment: - Not on home cpap. (4) DVT prophylaxis Comment: - Lovenox with warfarin. (5) Full code status Comment: Status and Disposition: Inpatient. Disposition per ortho, likely home today.
[2018-02-21 14:15] VITALS: BP 126/55
--- NOTE | 2018-02-24 00:07 | DS ---
DISCHARGE SUMMARY: DATE OF ADMISSION: 02/19/18 DATE OF DISCHARGE: 02/21/18 ADMITTING PHYSICIAN: Dr. Blanchard. ADMITTING DIAGNOSES: 1. Right hip osteoarthritis. 2. Hypertension. 3. History of deep venous thrombosis. 4. Sleep apnea. DISCHARGE DIAGNOSES: 1. Status post right total hip arthroplasty. 2. Hypertension. 3. History of deep venous thrombosis. 4. Sleep apnea. PROCEDURE: Right total hip arthroplasty. CONSULTANTS: Physical Therapy, Occupational Therapy, Medicine. BRIEF HISTORY: Mr. Lambert is a 62-year-old male with severe degenerative osteoarthritis of his righ t hip. He failed conservative treatment measures and elected to undergo a right total hip arthroplas ty on 02/19/[address] Blanchard. HOSPITAL COURSE: Mr. Lambert was admitted to [facility] on 02/19/18. He underwent an unco mplicated right total hip arthroplasty. Postoperatively, he recovered on the short-stay surgical uni t. His Hernandez catheter was removed on postoperative day 1 and he was able to urinate on his own. On postoperative day 2, he was able to have a bowel movement. He advanced to a regular diet without dif ficulty. His pain was well controlled with Percocet. He was restarted on home medications. His vit al signs and labs remained stable. He was able to bear weight as tolerated on the right lower extrem ity. He advanced appropriately with physical therapy and occupational therapy. His DVT prophylaxis was bridged with Lovenox and Coumadin. By postoperative day #2, he was orthopedically and medically stable for discharge home with services. PHYSICAL EXAM: General: On examination, the patient is noted to be calm and cooperative, in no acut e distress. He is alert and oriented x3. Vital Signs: On day of discharge, temperature 97.4 degree s Fahrenheit, pulse rate 85, respiratory rate 18, O2 sat on room air 99%, and blood pressure 123/55. Extremities: Examination of the right lower extremity demonstrates dressing overlying the right hip, which is clean, dry, and intact. His thigh is minimally swollen and compressible. Distally neurova scular function is intact. Gross strength is intact distally. LABORATORY DATA: On the day of discharge, hemoglobin 9.7, hematocrit 28. INR 1.37. RADIOGRAPHS: Postoperative radiographs of the right hip demonstrates right total hip arthroplasty wi th satisfactory prosthesis placement and no acute bony abnormalities. DISCHARGE MEDICATIONS: 1. Furosemide 40 mg 1-1/2 tabs daily. 2. Lipo-flavanoid. 3. Benicar 40/25 mg daily. 4. Centrum Silver. 5. Percocet 5/325 one to two tabs p.o. q.4 to 6 hours p.r.n. pain. 6. Coumadin 2 mg tablets take as directed. 7. Colace 100 mg p.o. t.i.d. p.r.n. constipation. CONDITION ON DISCHARGE: Stable. DISCHARGE INSTRUCTIONS: Mr. Lambert is a 62-year-old male, postoperative day #2, status post right t otal hip arthroplasty, which was uncomplicated. He is orthopedically and medically stable to be disc harged home with services. He has stable vital signs and labs. He has restarted home medications. He will take 8 mg of Coumadin on Friday night and 8 mg of Coumadin on Friday night. He will have h is INR rechecked on Friday. He will have INR draws on Mondays and with visiting nurse serv iceeliecer. He will remain weightbearing as tolerated on the right lower extremity following posterior hip precautions and he will have home physical therapy twice a day. He will take Percocet for pain cont rol and Colace up to 3 times a day for constipation. He will follow up in the office with Dr. Blanchard in 10 to 14 days for incision check and suture removal. He was instructed to call Dr. Blanchard to go im mediately to the ER should he develop any new fevers, chills, incision pain, redness, or drainage. He was instructed to go immediately to the ER should he develop chest pain or shortness of breath. EMELY THOMPSON [id number]/[facility] #: [id number]
== END 2018-02-21 14:15 | disposition home or self-care (01) | DRG 301 ==
LOC: AA 05:56 → SSU 13:39
PROVIDERS: ADMIT Orthopaedic Surgery Adult Reconstructive Orthopaedic Surgery; ATTEND Internal Medicine
PROC: 0SR904A Replacement of Right Hip Joint with Ceramic on Polyethylene Synthetic Substitute, Uncemented, Open Approach (ICD-10-PCS; principal; 2018-02-19 07:30)
DX: M16.11 Unilateral primary osteoarthritis, right hip (principal); Z68.41 Body mass index [BMI] 40.0-44.9, adult; E66.01 Morbid (severe) obesity due to excess calories; Z96.642 Presence of left artificial hip joint; I10 Essential (primary) hypertension; G47.33 Obstructive sleep apnea (adult) (pediatric); Z79.1 Long term (current) use of non-steroidal anti-inflammatories (NSAID); Z86.718 Personal history of other venous thrombosis and embolism; Z79.899 Other long term (current) drug therapy; Z80.1 Family history of malignant neoplasm of trachea, bronchus and lung; Z82.49 Family history of ischemic heart disease and other diseases of the circulatory system; Z84.1 Family history of disorders of kidney and ureter
CPT/HCPCS: 36415; 80048; 85014; 85018; 85049; 85610; 94660; A9270-GY; G8978-GP-CK; G8979-GP-CJ; J0690; J1100; J1170; J1650; J2250; J2405; J2704; J2795; J3010